=== PATIENT | male | born 1950 | race Caucasian/White ===

== ENCOUNTER → 2022-12-04 | Outpatient (CLI) | payer MEDICARE, OTHER ==
[~2022-12-04] MED LIST: ALFU10TA PO; AMYL1CAP58 PO; CLON1TAB12 PO; DULO60CA45 PO; ESOM40CA PO; FESO8TAB PO; GLIM1TAB18 PO; LORA10TA7 PO; PIOG15TA8 PO; SIMV10TA2 PO; SITA1TAB6 PO; SPIR25TA PO
[2022-12-04 14:23] LABS: BASOPHILS % (AUTO) 0.5 % (0.0-2.0); EOSINOPHILS % (AUTO) 3.9 % (0.0-6.0); HEMATOCRIT 38 % (39-51); HEMOGLOBIN 11.8 g/dL (13.5-17.5); LYMPHOCYTES # (AUTO) 1.1 K/uL (0.8-4.8); LYMPHOCYTES % (AUTO) 19.2 % (20.0-44.0); MEAN CORPUSCULAR HGB CONC 32 g/dl (31.0-36.0); MEAN CORPUSCULAR VOLUME 76 fL (80-96); MONOCYTES # (AUTO) 0.3 K/uL (0.1-1.30); MONOCYTES % (AUTO) 5.7 % (2.0-12.0); NEUTROPHILS # (AUTO) 4.1 K/uL (1.8-8.9); NEUTROPHILS % (AUTO) 70.7 % (43.0-81.0); PLATELET COUNT (AUTO) 119 K/uL (150-450); RED BLOOD CELL COUNT(AUTO) 4.95 MIL/uL (4.5-6.0); WHITE BLOOD COUNT (AUTO) 5.8 K/uL (4.3-11.0)
[2022-12-04 14:39] LABS: BILIRUBIN,URINE NEGATIVE (NEGATIVE); COLOR,URINE YELLOW (YELLOW); LEUKOCYTE ESTERASE ,URINE NEGATIVE (NEGATIVE); NITRITE, URINE NEGATIVE (NEGATIVE); PH,URINE 5.5 (5.0-8.0); PROTEIN,URINE NEGATIVE (NEGATIVE); UGLUCOSE 3+ mg/dL (NEGATIVE); UROBILINOGEN,URINE 0.2 EU/dL (0.2)
[2022-12-04 14:50] LABS: CALCIUM, SERUM 8.8 mg/dL (8.5-10.1); CARBON DIOXIDE 29 mmol/L (21-32); CHLORIDE 105 mmol/L (98-107); CREATININE 1.4 mg/dL (0.6-1.3); GLUCOSE 225 mg/dL (74-106); POTASSIUM 4.9 mmol/L (3.5-5.1); SODIUM SERUM 140 mmol/L (136-145); UREA NITROGEN, BLOOD 23 mg/dL (7-18)
[2022-12-04 16:21] LABS: BACTERIA,URINE None seen /HPF (None Seen); RBC,URINE 0-2 /HPF (0-2); SQUAMOUS EPITHELIAL CELL,UR 0-2 /HPF (None Seen); WBC,URINE 0-2 /HPF (0-3)
== END | disposition home or self-care (01) ==
LOC: RAD 13:15
PROVIDERS: ATTEND Internal Medicine Pulmonary Disease
DX: Z01.818 Encounter for other preprocedural examination (principal)
CPT/HCPCS: 36415; 71045-TC; 80048-TC; 81001; 85025-TC; 85730-TC

== ENCOUNTER 2022-12-14 13:11 | Outpatient (CLI) | payer MEDICARE, OTHER | END 2022-12-14 23:59 | disposition home or self-care (01) | LOC: LAB 13:11 | PROVIDERS: ATTEND Dentist Oral and Maxillofacial Surgery | DX: Z01.812 Encounter for preprocedural laboratory examination (principal); Z20.822 Contact with and (suspected) exposure to COVID-19 | CPT/HCPCS: U0003; C9803 ==

== ENCOUNTER 2023-07-09 08:35 | Inpatient (IN) | payer MEDICARE, OTHER ==
[~2023-07-09] VITALS: Ht 170.2 cm; Wt 66.2 kg
[~2023-07-09 08:35] MED LIST changes: +LIDOCAINE 2% JEL 5 ML TUBE MC ONE
[2023-07-09] MEDS ORDERED: LIDOCAINE 2%-EPI 1:100,000 30 ML VIAL ONE (09:27)
[2023-07-09] MEDS ORDERED: VANCOMYCIN 1 GM VIAL ONE (09:27)
[2023-07-09] MEDS ORDERED: dexaMETHasone SOD PHOSPHATE 10 MG/ML VIAL ONE (09:27)
[2023-07-09] MEDS ORDERED: OXYMETAZOLINE HCL NASAL SPRAY 30 ML BOTTLE NS ONE ×2 (09:27→09:52)
[2023-07-09] MEDS ORDERED: TEMA15CA PO (09:42)
[2023-07-09] MEDS ORDERED: LIPA1CAP15 PO (09:42)
[2023-07-09] MEDS ORDERED: INSU100V7 SQ (09:42)
[2023-07-09] MEDS ORDERED: PYRI100T10 PO (09:42)
[2023-07-09] MEDS ORDERED: VITA1TAB56 PO (09:42)
[2023-07-09] MEDS ORDERED: MAGN400T26 PO (09:42)
[2023-07-09] MEDS ORDERED: INSU100I4 SQ (09:42)
[2023-07-09] MEDS ORDERED: LATA2.5D15 EACHEYE (09:42)
[2023-07-09] MEDS ORDERED: CHOL100043 PO (09:42)
[2023-07-09] MEDS ORDERED: METF-867 PO (09:42)
[2023-07-09] MEDS ORDERED: MYRBETRIQ PO (09:42)
[2023-07-09] MEDS ORDERED: MELA5TAB PO (09:42)
[2023-07-09] MEDS ORDERED: THIA250T9 PO (09:42)
[2023-07-09] MEDS ORDERED: FAMOTIDINE/PF INJ 20 MG/2 ML VIAL IV ONE (09:51)
[2023-07-09] MEDS ORDERED: FENTANYL PF 100MCG/2ML AMPUL ONE (09:51)
[2023-07-09] MEDS ORDERED: ROCURONIUM BROMIDE 50 MG/5 ML ONE (09:51)
[2023-07-09 10:00] VITALS: BP 129/81; TEMP 98.6; O2SAT 96
[2023-07-09 12:13] VITALS: BP 128/83; TEMP 98.3; O2SAT 98
[2023-07-09] MEDS ORDERED: IV NS 0.9% 1,000 ML IV PRN (12:30)
[2023-07-09] MEDS ORDERED: ONDANSETRON HCL/PF 4 MG/2 ML VIAL IVP PRN (12:30)
[2023-07-09] MEDS ORDERED: ACETAMINOPHEN 325 MG TABLET PO PRN (12:30)
[2023-07-09] MEDS ORDERED: HYDROMORPHONE 1 MG/1 ML DISP.SYRIN IV PRN (12:30)
[2023-07-09 16:00] VITALS: BP 129/76; TEMP 98.6; O2SAT 98
[2023-07-09] MEDS ORDERED: DEXTROSE 50%-WATER 50 ML DISP.SYRIN IV PRN (16:00)
[2023-07-09] MEDS: BLOOD SUGAR DIAGNOSTIC 1 EACH STRIP IN SCH ×2 (17:13→22:09)
[2023-07-09] MEDS: INSULIN REGULAR, HUMAN 100 UNIT/ML 3 ML VIAL SQ PRN ×2 (17:17→22:11)
[2023-07-09 20:00] VITALS: BP 122/76; TEMP 98.6; O2SAT 96
[2023-07-09] MEDS: VANCOMYCIN 1 GM in IV D5W 250ml IV SCH (22:08)
[2023-07-10] MEDS: BLOOD SUGAR DIAGNOSTIC 1 EACH STRIP IN SCH ×2 (06:54→12:00)
[2023-07-10] MEDS: INSULIN REGULAR, HUMAN 100 UNIT/ML 3 ML VIAL SQ PRN (06:56)
[2023-07-10 08:00] VITALS: BP 130/86; TEMP 97.5; O2SAT 97
[2023-07-10] MEDS: VANCOMYCIN 1 GM in IV D5W 250ml IV SCH (10:37)
== END 2023-07-10 12:55 | disposition home or self-care (01) | DRG 497 ==
LOC: DS 08:35 → MED 09:13
PROVIDERS: ADMIT Internal Medicine; ATTEND Internal Medicine
PROC: 0NPW04Z Removal of Internal Fixation Device from Facial Bone, Open Approach (ICD-10-PCS; principal; 2023-07-09)
PROC: 0WB30ZX Excision of Oral Cavity and Throat, Open Approach, Diagnostic (ICD-10-PCS; 2023-07-09)
PROC: 0NBR0ZX Excision of Maxilla, Open Approach, Diagnostic (ICD-10-PCS; 2023-07-09)
DX: T84.69XA Infection and inflammatory reaction due to internal fixation device of other site, initial encounter (principal); E11.9 Type 2 diabetes mellitus without complications; E78.5 Hyperlipidemia, unspecified; I10 Essential (primary) hypertension; K12.30 Oral mucositis (ulcerative), unspecified; Z79.4 Long term (current) use of insulin; Y83.8 Other surgical procedures as the cause of abnormal reaction of the patient, or of later complication, without mention of misadventure at the time of the procedure; Y92.009 Unspecified place in unspecified non-institutional (private) residence as the place of occurrence of the external cause
CPT/HCPCS: 82962-TC; A4223; G0378; J1100; J1815; J2405; J2704; J3010; J3370; J3490; J7030; J7060

== ENCOUNTER 2024-05-12 08:46 | Inpatient (IN) | payer MEDICARE, OTHER ==
[~2024-05-12] VITALS: Ht 172.7 cm; Wt 78.0 kg
[~2024-05-12 08:46] MED LIST changes: -AMYL1CAP58 PO; +CHOL100043 PO; -CLON1TAB12 PO; -DULO60CA45 PO; -ESOM40CA PO; -FESO8TAB PO; -GLIM1TAB18 PO; +INSU100I4 SQ; +INSU100V7 SQ; +LATA2.5D15 EACHEYE; -LIDOCAINE 2% JEL 5 ML TUBE MC ONE; +LIPA1CAP15 PO; -LORA10TA7 PO; +MAGN400T26 PO; +MELA5TAB PO; +METF-867 PO; +MYRBETRIQ PO; -PIOG15TA8 PO; +PYRI100T10 PO; -SITA1TAB6 PO; -SPIR25TA PO; +TEMA15CA PO; +THIA250T9 PO; +VITA1TAB56 PO
[2024-05-12] MEDS ORDERED: dexaMETHasone SOD PHOSPHATE 1 ML ONE (09:34)
[2024-05-12] MEDS ORDERED: VANCOMYCIN 1 GM VIAL ONE (09:34)
[2024-05-12] MEDS ORDERED: LIDOCAINE 2%-EPI 1:100,000 30 ML VIAL ONE (09:34)
[2024-05-12] MEDS ORDERED: FENTANYL PF 250MCG/5ML AMPUL ONE (09:39)
[2024-05-12] MEDS ORDERED: OXYMETAZOLINE HCL NASAL SPRAY 30 ML BOTTLE NS ONE (09:39)
[2024-05-12 09:46] LABS: INR 1.03 (0.91-1.10); PARTIAL THROMBOPLASTIN TIME 27.1 SEC (24.3-34.3); PROTHROMBIN TIME 10.9 SECS (9.2-11.1)
--- NOTE | 2024-05-12 12:50 | NUR ---
RN NOTES RECEIVED 73YO MALE PATIENT FROM THE OR ACCOMPANIED BY OR NURSES AND PATIENT'S DAUGHTER AT 1245. VITAL SIGNS TAKEN AND RECORDED FOLLOWS: BP 115/68, P: 77, R: 16, T: 97.9, O2 SAT AT 96%. PATIENT ORIENTED TO STAFF AND THE ROOM. ENCOURAGED PATIENT TO USE CALL LIGHT WHEN NEEDED ASSISTANCE. KEPT PATIENT COMFORTABLE. WILL CONTINUE TO MONITOR. Addendum: 05/12/24 at 1601 by KELBY VARELA RN PATIENT ON 2L O2 VIA NC. TOLERATING WELL. DENIED ANY /SOB. DENIED ANY DISCOMFORT OR PAIN OF THIS TIME
[2024-05-12] MEDS ORDERED: ACETAMINOPHEN 325 MG TABLET PO PRN ×2 (13:00→16:00)
[2024-05-12] MEDS ORDERED: HYDROMORPHONE 1 MG/1 ML DISP.SYRIN IV PRN (13:00)
[2024-05-12] MEDS ORDERED: ONDANSETRON HCL/PF 4 MG/2 ML VIAL IV PRN (13:00)
--- NOTE | 2024-05-12 13:13 | NUR ---
RN NOTES PATIENT IN THE UNIT WITH DAUGHTER AT BEDSIDE. PER DR ARCINIEGA, OK TO GIVE ICE CHIPS. WILL CONTINUE TO MONITOR
[2024-05-12] MEDS ORDERED: FESO8TAB PO (14:08)
[2024-05-12] MEDS ORDERED: PANT40TA2 PO (14:08)
[2024-05-12] MEDS ORDERED: CYAN500T64 PO (14:08)
[2024-05-12] MEDS ORDERED: INSU100I4 SQ ×3 (14:08)
[2024-05-12] MEDS ORDERED: MAGN200T4 PO (14:08)
[2024-05-12] MEDS ORDERED: MILK175T2 PO (14:08)
[2024-05-12] MEDS ORDERED: METF-442 PO (14:08)
[2024-05-12] MEDS ORDERED: DULO30CA2 PO (14:08)
[2024-05-12] MEDS ORDERED: DAPA5TAB PO (14:08)
[2024-05-12] MEDS ORDERED: VITAMIN PO (14:08)
[2024-05-12 15:49] VITALS: BP 115/68; TEMP 97.9; O2SAT 95
[2024-05-12 16:00] VITALS: BP 131/83; TEMP 98.1; O2SAT 96
[2024-05-12] MEDS ORDERED: Z GUARD REMEDY 4 OZ OINT TP PRN (16:00)
[2024-05-12] MEDS ORDERED: MAGNESIUM HYDROXIDE 30 ML UDC PO PRN (16:00)
[2024-05-12] MEDS ORDERED: MAG HYDROX/AL HYDROX/SIMETH 30 ML UDC PO PRN (16:00)
[2024-05-12] MEDS ORDERED: INSULIN ASPART 6 UNIT SQ SCH (16:00)
[2024-05-12] MEDS ORDERED: ZOLPIDEM TARTRATE 5 MG TABLET PO PRN (16:00)
[2024-05-12] MEDS ORDERED: ONDANSETRON HCL/PF 4 MG/2 ML VIAL IVP PRN (16:00)
[2024-05-12] MEDS: SIMVASTATIN 10 MG TABLET PO SCH (17:03)
[2024-05-12] MEDS: IV NS 0.9% 1,000 ML IV PRN (17:03)
--- NOTE | 2024-05-12 17:16 | NUR ---
RN NOTES ACCUCHECK DONE. BLOOD SUGAR 228. INFORMED DR LOPEZ. AWAITING ORDERS, CHARGE NURSE LIANA AWARE TOO. WILL CONTINUE TO MONITOR
[2024-05-12] MEDS: BLOOD SUGAR DIAGNOSTIC 1 EACH STRIP VI SCH (17:17)
[2024-05-12] MEDS ORDERED: DEXTROSE 50%-WATER 50 ML DISP.SYRIN IV PRN (17:30)
[2024-05-12] MEDS ORDERED: *INSULIN REGULAR(HUMULIN R)HUM 100 UNIT/ML VIAL SQ PRN (17:30)
[2024-05-12] MEDS ORDERED: INSULIN ASPART 16 UNIT SQ SCH (18:00)
[2024-05-12] MEDS: INSULIN REGULAR, HUMAN 100 UNIT/ML 3 ML VIAL SQ PRN (18:41)
--- NOTE | 2024-05-12 18:51 | NUR ---
MS ANIMAL CARE SPECIALIST NOTES- RECEIVED A 73Y/O MALE PATIENT FROM THE OR VIA HOSPITAL BED ACCOMPANIED BY OR NURSES AT 1245. VS TAKEN AND RECORDED. ON 2L NC, TOLERATING WELL SATURATING AT 96%. BREATHING EVENLY AND UNLABORED, TOLERATING WELL. DENIES OR SOB OF THIS TIME. DENIES ANY DISCOMFORT OR PAIN OF THIS MOMENT. PATIENT IS ALERT ORIENTED X4. PATIENT HAS AN IV ACCESS ATR HAND G#20, PATENT, INTACT AND INFUSING WELL WITH NS AT 30ML/HR. NO S/SX OF INFILTRATION NOTED. NO BLEEDING NOTED. SKIN ASSESSMENT DONE, SKIN INTACT. ALL BELONGINGS INVENTORIED AND ACCOUNTED, SIGNED AND FILED AT THE PATIENT'S CHART. ORIENTED PATIENT TO ROOM SET-UP. ABLE TO EXPRESS HIS NEEDS. PATIENT EXPRESSES NO NEEDS OF THIS TIME. KEPT PATIENT CLEAN, DRY AND COMFORTABLE. ALL NEEDS MET. ALL DUE MEDS GIVEN. NO REPORTED BLEEDING FROM THE MOUTH. SAFETY MEASURES IN PLACE. CALL LIGHT AND TABLE WITHIN REACH. BED IN LOW AND LOCKED POSITION. SIDE RAILS UP X 2. ENDORSED TO DIGITAL CONTENT SPECIALIST NURSE FOR RADHA.
--- NOTE | 2024-05-12 19:05 | NUR ---
MS RN OPENING NOTES RECEIVED PATIENT AWAKE IN BED, WATCHING TV. A/O X 4. ON 2L OXYGEN VIA NASAL CANNULA, BREATHING EVEN AND UNLABORED, SATURATING @ 100%. REMOVED THE OXYGEN FOR NOW AND PUT THE PATIENT ON ROOM AIR. IV ACCESS RIGHT HAND #20G WITH IV FLUID RUNNING NS @ 30 ML/HR, INFUSING WELL. PATIENT ON SOFT DIET. SAFETY MEASURES IN PLACE WITH BED IN LOWEST LOCKED POSITION, SIDE RAILS UP X 2, CALL LIGHT AND TRAY WITHIN EASY REACH. PLAN OF CARE ONGOING.
[2024-05-12 20:00] VITALS: BP 115/80; TEMP 98.4; O2SAT 100
[2024-05-12] MEDS ORDERED: Medication Not On Formulary EA (Melatonin 5 MG) PO SCH (22:00)
[2024-05-12] MEDS ORDERED: ALFUZOSIN HCL 10 MG PO SCH (22:00)
[2024-05-12] MEDS: VANCOMYCIN 1 GM in IV D5W 250ml IV SCH (22:09)
[2024-05-12] MEDS: TEMAZEPAM 15 MG CAPSULE PO SCH (22:09)
[2024-05-12] MEDS: INSULIN GLARGINE, 100 UNIT/ML CARTRIDGE SQ SCH (22:21)
--- NOTE | 2024-05-12 22:30 | NUR ---
RN NOTES-ACCUCHECK DONE. BS LEVEL-239. LANTUS GIVEN 16 UNITS, PATIENT REFUSED REGULAR INSULIN DESPITE EXPLANATION AND EDUCATION ABOUT THE MEDICATION. PER PATIENT, HE IS ONLY TAKING LANTUS AT NIGHT. DENIES ANY ACUTE DISTRESS AT THIS TIME. PLAN OF CARE ONGOING.
[2024-05-13 06:29] LABS: BASOPHILS % (AUTO) 0.2 % (0.0-2.0); EOSINOPHILS % (AUTO) 0.1 % (0.0-6.0); HEMATOCRIT 42 % (39-51); HEMOGLOBIN 14.2 g/dL (13.5-17.5); LYMPHOCYTES # (AUTO) 0.9 K/uL (0.8-4.8); LYMPHOCYTES % (AUTO) 9.2 % (20.0-44.0); MEAN CORPUSCULAR HEMOGLOBIN 28 PG (26.0-33.0); MEAN CORPUSCULAR HGB CONC 34 g/dl (31.0-36.0); MEAN CORPUSCULAR VOLUME 84 fL (80-96); MONOCYTES # (AUTO) 0.4 K/uL (0.1-1.30); MONOCYTES % (AUTO) 3.8 % (2.0-12.0); NEUTROPHILS # (AUTO) 8.8 K/uL (1.8-8.9); NEUTROPHILS % (AUTO) 86.7 % (43.0-81.0); PLATELET COUNT (AUTO) 95 K/uL (150-450); RED BLOOD CELL COUNT(AUTO) 5.04 MIL/uL (4.5-6.0); RED CELL DISTRIBUTION WIDTH 15.6 % (11.5-15.0); WHITE BLOOD COUNT (AUTO) 10.1 K/uL (4.3-11.0)
--- NOTE | 2024-05-13 06:34 | NUR ---
RN NOTES- ACCUCHECK DONE. BS LEVEL 182- 3 UNITS REGULAR INSULIN GIVEN. DENIES ANY ACUTE DISTRESS AT THIS TIME. PLAN OF CARE ONGOING.
--- NOTE | 2024-05-13 06:35 | NUR ---
MS RN CLOSING NOTES PATIENT SLEEPING IN BED, EASILY AWAKEN BY VERBAL STIMULI. A/O X 4. STABLE ON ROOM AIR. IV ACCESS RIGHT HAND #20G WITH IV FLUID RUNNING NS @ 30 ML/HR, INFUSING WELL. PATIENT ON SOFT DIET. ALL NEEDS ATTENDED. SAFETY MEASURES MAINTAINED DURING SHIFT. WILL ENDORSE TO THE NEXT NURSE ON DUTY FOR CONTINUITY OF CARE.
[2024-05-13 07:02] LABS: CALCIUM, SERUM 8.8 mg/dL (8.5-10.1); CARBON DIOXIDE 25 mmol/L (21-32); CHLORIDE 104 mmol/L (98-107); CREATININE 1.1 mg/dL (0.6-1.3); GLUCOSE 191 mg/dL (74-106); MAGNESIUM 1.7 mg/dL (1.8-2.4); POTASSIUM 4.7 mmol/L (3.5-5.1); SODIUM SERUM 137 mmol/L (136-145); UREA NITROGEN, BLOOD 24 mg/dL (7-18)
--- NOTE | 2024-05-13 07:18 | NUR ---
MS RN OPENING NOTES- 307/ RECEIVED PATIENT AWAKE IN BED, A/O X 4. ON ROOM AIR, BREATHING EVEN AND UNLABORED, SATURATING @ 100%. IV ACCESS ON RIGHT HAND #20G WITH IV FLUID RUNNING NS @ 30 ML/HR, INFUSING WELL. NO S/SX OF INFILTRATION NOTED. NO BLEEDING NOTED. PATIENT ON SOFT DIET. ABLE TO MAKE NEEDS KNOWN. PATIENT EXPRESSES NO NEEDS OF THIS MOMENT. SAFETY MEASURES IN PLACE WITH BED IN LOWEST LOCKED POSITION, SIDE RAILS UP X 2, CALL LIGHT AND TRAY WITHIN EASY REACH. PLAN OF CARE ONGOING.
[2024-05-13 08:00] VITALS: BP 108/72; TEMP 97.7; O2SAT 96
[2024-05-13] MEDS: DULOXETINE HCL 30 MG CAPSULE.DR PO SCH (08:59)
[2024-05-13] MEDS: METFORMIN 500 MG TABLET PO SCH (09:00)
[2024-05-13] MEDS ORDERED: [UNRECOGNIZED DRUG - OTHER] PO SCH (09:00)
[2024-05-13] MEDS ORDERED: Medication Not On Formulary EA ([Myrbetriq] 50 MG) PO SCH (09:00)
[2024-05-13] MEDS ORDERED: INSULIN ASPART 22 UNIT SQ SCH (09:00)
[2024-05-13] MEDS: CYANOCOBALAMIN 500 MCG TABLET PO SCH (09:00)
[2024-05-13] MEDS ORDERED: Medication Not On Formulary EA (Fesoterodine Fumarate (Toviaz) 8 MG) PO SCH (09:00)
[2024-05-13] MEDS ORDERED: MILK THISTLE SEED EXTRACT 175 MG PO SCH (09:00)
[2024-05-13] MEDS: VITAMIN B COMP W-C 1 TAB TABLET PO SCH (09:01)
[2024-05-13] MEDS: MAGNESIUM OXIDE 400 MG TABLET PO SCH (09:01)
[2024-05-13] MEDS: PANTOPRAZOLE 40 MG TABLET.DR PO SCH (09:01)
[2024-05-13] MEDS: CHOLECALCIFEROL 1,000 UNIT TABLET (VIT D3) PO SCH (09:01)
[2024-05-13] MEDS: THIAMINE HCL 100 MG TABLET PO SCH (09:03)
[2024-05-13] MEDS: PYRIDOXINE HCL 50 MG TABLET PO SCH (09:03)
--- NOTE | 2024-05-13 09:56 | NUR ---
RN NOTES DAPAGLIFLOZIN NOT ON CASSETTE. INFORMED PHARMACY. SAID THEY WILL SENT IT IN. WAITING FOR THE MEDICATION.
--- NOTE | 2024-05-13 10:16 | NUR ---
RN NOTE DAPAGLIFLOZIN RECEIVED. WILL NOW GIVE TO PATIENT. WILL CONTINUE TO MONITOR.
[2024-05-13] MEDS: DAPAGLIFLOZIN PROPANEDIOL 5 MG TABLET PO SCH (10:18)
[2024-05-13 10:23] LABS: BASOPHILS % (MANUAL) 0 % (0.0-2.0); EOSINOPHILS % (MANUAL) 0 % (0-4); LYMPHOCYTES % (MANUAL) 11 % (16-48); MONOCYTES % (MANUAL) 4 % (0-11.0); NEUTROPHILS % (MANUAL) 85 (42-76)
[2024-05-13 10:24] LABS: ANISOCYTOSIS 1+; PLATELET ESTIMATE DECREASED
[2024-05-13] MEDS: LIPASE/PROTEASE/AMYLASE 1 EACH CAPSULE.DR PO SCH (12:16)
--- NOTE | 2024-05-13 14:17 | NUR ---
MS RN HYPERBARIC NOTES PATIENT DISCHARGED TO HOME AMBULATORY ACCOMPANIED BY HIS DAUGHTER, AND TAKER OFF HEMP FIBER KELBY. A/O X 4. TOLERATING ROOM AIR WELL, BREATHING EVENLY AND UNLABORED, NO ACUTE RESPIRATORY DISTRESS NOTED. DENIED ANY PAIN OR DISCOMFORT OF THIS TIME. NO ORAL BLEEDING NOTED AND REPORTED. ALL VITAL SIGNS, WNL. ALL BELONGINGS ARE ACCOUNTED FOR BY LETICIA MAURICE, SIGNED AND FILED ON PATIENT'S CHART. HEALTH TEACHINGS AND DISCHARGE INSTRUCTIONS WERE GIVEN TO THE PATIENT. HE VERBALIZED UNDERSTANDING. ALL DUE MEDS WERE GIVEN. ALL NEEDS MET. NAME ARMBAND AND IV ACCESS REMOVED. PATIENT LEFT UNIT @ 1345. CHARGE NURSE AND DOCTOR AWARE.
== END 2024-05-13 13:45 | disposition home or self-care (01) | DRG 142 ==
LOC: DS 08:46 → MED 12:59
PROVIDERS: ADMIT Student in an Organized Health Care Education/Training Program; ATTEND Student in an Organized Health Care Education/Training Program
PROC: 0NSV04Z Reposition Left Mandible with Internal Fixation Device, Open Approach (ICD-10-PCS; principal; 2024-05-12)
PROC: 0NSR04Z Reposition Maxilla with Internal Fixation Device, Open Approach (ICD-10-PCS; 2024-05-12)
PROC: 0NUR07Z Supplement Maxilla with Autologous Tissue Substitute, Open Approach (ICD-10-PCS; 2024-05-12)
PROC: 0NBR0ZZ Excision of Maxilla, Open Approach (ICD-10-PCS; 2024-05-12)
PROC: 0NUV07Z Supplement Left Mandible with Autologous Tissue Substitute, Open Approach (ICD-10-PCS; 2024-05-12)
PROC: 0NBV0ZX Excision of Left Mandible, Open Approach, Diagnostic (ICD-10-PCS; 2024-05-12)
PROC: 0NUV0JZ Supplement Left Mandible with Synthetic Substitute, Open Approach (ICD-10-PCS; 2024-05-12)
PROC: 0NUR0JZ Supplement Maxilla with Synthetic Substitute, Open Approach (ICD-10-PCS; 2024-05-12)
DX: S02.69XA Fracture of mandible of other specified site, initial encounter for closed fracture (principal); M27.2 Inflammatory conditions of jaws; S02.40DA Maxillary fracture, left side, initial encounter for closed fracture; J32.0 Chronic maxillary sinusitis; E78.5 Hyperlipidemia, unspecified; I10 Essential (primary) hypertension; E11.9 Type 2 diabetes mellitus without complications; M27.49 Other cysts of jaw; Z79.4 Long term (current) use of insulin; X58.XXXA Exposure to other specified factors, initial encounter; Y93.9 Activity, unspecified; Y92.009 Unspecified place in unspecified non-institutional (private) residence as the place of occurrence of the external cause; M84.88 Other disorders of continuity of bone, other site
CPT/HCPCS: 36415; 80048-TC; 82962-TC; 83735-TC; 84100-TC; 85025-TC; 85730-TC; 88305-TC; 88311-TC; A4223; A4338; C1713; C1781; G0378; J0330; J1100; J1170; J1815; J1885; J2405; J2704; J3010; J3370; J3490; J7030; J7050; J7060

== ENCOUNTER 2024-09-21 06:47 | Inpatient (IN) | payer MEDICARE, OTHER ==
[~2024-09-21] VITALS: Ht 172.7 cm; Wt 78.0 kg
[~2024-09-21 06:47] MED LIST changes: +CYAN500T64 PO; +DAPA5TAB PO; +DULO30CA2 PO; +FESO8TAB PO; -LATA2.5D15 EACHEYE; +MAGN200T4 PO; -MAGN400T26 PO; +METF-442 PO; -METF-867 PO; +MILK175T2 PO; +PANT40TA2 PO; +VITAMIN PO
[2024-09-21] MEDS ORDERED: LIDOCAINE 2%-EPI 1:100,000 30 ML VIAL ONE (06:49)
[2024-09-21] MEDS ORDERED: dexaMETHasone SOD PHOSPHATE 2 ML ONE (06:49)
[2024-09-21] MEDS ORDERED: ANESTHESIA TRAY IN PYXIS 1 EA TRAY MC ONE (06:49)
[2024-09-21] MEDS ORDERED: VANCOMYCIN 1 GM VIAL ONE (06:50)
[2024-09-21] MEDS ORDERED: OXYMETAZOLINE HCL NASAL SPRAY 30 ML BOTTLE NS ONE (06:50)
[2024-09-21] MEDS ORDERED: FENTANYL PF 250MCG/5ML AMPUL ONE (07:24)
[2024-09-21] MEDS ORDERED: ROCURONIUM BROMIDE 50 MG/5 ML ONE (07:24)
[2024-09-21 07:32] LABS: CREATININE 1.3 mg/dL (0.6-1.3); POTASSIUM 4.3 mmol/L (3.5-5.1)
[2024-09-21 07:39] LABS: ALBUMIN 3.4 g/dL (3.4-5.0); BILIRUBIN,TOTAL 0.8 mg/dL (0.2-1.0); TOTAL PROTEIN, SERUM 6.6 g/dL (6.4-8.2)
[2024-09-21] MEDS ORDERED: LABETALOL 20 MG/4 ML VIAL ONE (07:58)
[2024-09-21 10:30] VITALS: BP 123/83; TEMP 98.6; O2SAT 94
[2024-09-21] MEDS ORDERED: HYDROMORPHONE 1 MG/1 ML DISP.SYRIN IV PRN (10:30)
[2024-09-21] MEDS ORDERED: ACETAMINOPHEN 325 MG TABLET PO PRN ×2 (10:30→19:00)
[2024-09-21] MEDS ORDERED: ONDANSETRON HCL/PF 4 MG/2 ML VIAL IV PRN (10:30)
[2024-09-21] MEDS: IV NS 0.9% 1,000 ML IV PRN (11:38)
[2024-09-21] MEDS ORDERED: LATA2.5D15 EACHEYE (13:19)
[2024-09-21] MEDS ORDERED: DEXTROSE 50%-WATER 50 ML DISP.SYRIN IV PRN (15:30)
[2024-09-21 16:00] VITALS: BP 118/84; TEMP 97.3; O2SAT 94
[2024-09-21] MEDS: INSULIN REGULAR, HUMAN 100 UNIT/ML 3 ML VIAL SQ PRN (16:52)
[2024-09-21] MEDS: BLOOD SUGAR DIAGNOSTIC 1 EACH STRIP IN SCH (16:54)
[2024-09-21] MEDS ORDERED: TEMAZEPAM 15 MG CAPSULE PO PRN (19:00)
[2024-09-21] MEDS ORDERED: MAG HYDROX/AL HYDROX/SIMETH 30 ML UDC PO PRN (19:00)
[2024-09-21] MEDS ORDERED: Z GUARD REMEDY 4 OZ OINT TP PRN (19:00)
[2024-09-21] MEDS ORDERED: MAGNESIUM HYDROXIDE 30 ML UDC PO PRN (19:00)
[2024-09-21] MEDS ORDERED: ONDANSETRON HCL/PF 4 MG/2 ML VIAL IVP PRN (19:00)
[2024-09-21] MEDS: VANCOMYCIN 1 GM in IV D5W 250ml IV SCH (19:22)
[2024-09-21 20:00] VITALS: BP 126/80; TEMP 97.9; O2SAT 93
[2024-09-22 07:06] LABS: CALCIUM, SERUM 9.4 mg/dL (8.5-10.1); CREATININE 1.2 mg/dL (0.6-1.3); PHOSPHORUS 2.9 mg/dL (2.5-4.9)
[2024-09-22] MEDS: PANTOPRAZOLE 40 MG TABLET.DR PO SCH (07:29)
[2024-09-22 08:00] VITALS: BP 133/85; TEMP 97.9; O2SAT 95
[2024-09-22] MEDS ORDERED: INSULIN LISPRO/ASPART 100 UNIT/ML CARTRIDGE SQ SCH ×3 (08:30)
[2024-09-22] MEDS ORDERED: HOME MED MISCELLANEOUS XX SCH ×2 (08:30)
[2024-09-22] MEDS ORDERED: MAGNESIUM OXIDE 400 MG TABLET PO SCH (09:00)
[2024-09-22] MEDS ORDERED: PANTOPRAZOLE 40 MG TABLET.DR PO SCH (09:00)
[2024-09-22] MEDS: PYRIDOXINE HCL 50 MG TABLET PO SCH (09:18)
[2024-09-22] MEDS: THIAMINE HCL 100 MG TABLET PO SCH (09:18)
[2024-09-22] MEDS: DULOXETINE HCL 30 MG CAPSULE.DR PO SCH (09:18)
[2024-09-22] MEDS: CYANOCOBALAMIN 500 MCG TABLET PO SCH (09:19)
[2024-09-22] MEDS: METFORMIN 500 MG TABLET PO SCH (09:20)
[2024-09-22] MEDS: CHOLECALCIFEROL 1,000 UNIT TABLET (VIT D3) PO SCH (09:20)
[2024-09-22] MEDS: VITAMIN B COMP W-C 1 TAB TABLET PO SCH (09:20)
[2024-09-22] MEDS: DAPAGLIFLOZIN PROPANEDIOL 5 MG TABLET PO SCH (09:21)
[2024-09-22 10:13] LABS: BASOPHILS % (AUTO) 0.5 % (0.0-2.0); EOSINOPHILS % (AUTO) 0.1 % (0.0-6.0); HEMATOCRIT 44 % (39-51); HEMOGLOBIN 14.6 g/dL (13.5-17.5); LYMPHOCYTES # (AUTO) 0.8 K/uL (0.8-4.8); MEAN CORPUSCULAR HEMOGLOBIN 28 PG (26.0-33.0); MEAN CORPUSCULAR HGB CONC 34 g/dl (31.0-36.0); MEAN CORPUSCULAR VOLUME 84 fL (80-96); MONOCYTES # (AUTO) 0.3 K/uL (0.1-1.30); MONOCYTES % (AUTO) 3.5 % (2.0-12.0); NEUTROPHILS # (AUTO) 8.5 K/uL (1.8-8.9); NEUTROPHILS % (AUTO) 87.9 % (43.0-81.0); PLATELET COUNT (AUTO) 94 K/uL (150-450); RED BLOOD CELL COUNT(AUTO) 5.16 MIL/uL (4.5-6.0); RED CELL DISTRIBUTION WIDTH 14.7 % (11.5-15.0); WHITE BLOOD COUNT (AUTO) 9.7 K/uL (4.3-11.0)
[2024-09-22 13:03] LABS: LYMPHOCYTES % (MANUAL) 10 % (16-48); MONOCYTES % (MANUAL) 3 % (0-11.0); NEUTROPHILS % (MANUAL) 87 (42-76); OVALOCYTES 1+; PLATELET ESTIMATE DECREASED
[2024-09-22] MEDS ORDERED: SIMVASTATIN 10 MG TABLET PO SCH (18:00)
[2024-09-22] MEDS ORDERED: TEMAZEPAM 15 MG CAPSULE PO SCH (22:00)
[2024-09-22] MEDS ORDERED: LATANOPROST EYE DROP 0.005% 2.5 ML BOTTLE OP SCH (22:00)
[2024-09-22] MEDS ORDERED: LATANOPROST EYE DROP 0.005% 2.5 ML BOTTLE EACHEYE SCH (22:00)
[2024-09-22] MEDS ORDERED: INSULIN GLARGINE, 100 UNIT/ML CARTRIDGE SQ SCH (22:00)
== END 2024-09-22 11:00 | disposition home or self-care (01) | DRG 908 ==
LOC: DS 06:47 → MED 10:32
PROVIDERS: ADMIT Nurse Practitioner Acute Care; ATTEND Nurse Practitioner Acute Care
PROC: 0WC50ZZ Extirpation of Matter from Lower Jaw, Open Approach (ICD-10-PCS; principal; 2024-09-21)
PROC: 0N5R0ZZ Destruction of Maxilla, Open Approach (ICD-10-PCS; 2024-09-21)
PROC: 0NPW04Z Removal of Internal Fixation Device from Facial Bone, Open Approach (ICD-10-PCS; 2024-09-21)
PROC: 0WC40ZZ Extirpation of Matter from Upper Jaw, Open Approach (ICD-10-PCS; 2024-09-21)
PROC: 0N5V0ZZ Destruction of Left Mandible, Open Approach (ICD-10-PCS; 2024-09-21)
PROC: 0NSV04Z Reposition Left Mandible with Internal Fixation Device, Open Approach (ICD-10-PCS; 2024-09-21)
PROC: 0NSR04Z Reposition Maxilla with Internal Fixation Device, Open Approach (ICD-10-PCS; 2024-09-21)
PROC: 0NUV07Z Supplement Left Mandible with Autologous Tissue Substitute, Open Approach (ICD-10-PCS; 2024-09-21)
PROC: 0NUR07Z Supplement Maxilla with Autologous Tissue Substitute, Open Approach (ICD-10-PCS; 2024-09-21)
DX: T86.831 Bone graft failure (principal); S02.40DK Maxillary fracture, left side, subsequent encounter for fracture with nonunion; T84.69XA Infection and inflammatory reaction due to internal fixation device of other site, initial encounter; S02.69XK Fracture of mandible of other specified site, subsequent encounter for fracture with nonunion; E11.9 Type 2 diabetes mellitus without complications; K21.9 Gastro-esophageal reflux disease without esophagitis; N40.0 Benign prostatic hyperplasia without lower urinary tract symptoms; E78.5 Hyperlipidemia, unspecified; F32.A Depression, unspecified; H40.9 Unspecified glaucoma; I10 Essential (primary) hypertension; Y83.2 Surgical operation with anastomosis, bypass or graft as the cause of abnormal reaction of the patient, or of later complication, without mention of misadventure at the time of the procedure; D16.4 Benign neoplasm of bones of skull and face; K86.81 Exocrine pancreatic insufficiency; Z79.84 Long term (current) use of oral hypoglycemic drugs; X58.XXXD Exposure to other specified factors, subsequent encounter; Y72.8 Miscellaneous otorhinolaryngological devices associated with adverse incidents, not elsewhere classified; Y92.009 Unspecified place in unspecified non-institutional (private) residence as the place of occurrence of the external cause; Y83.8 Other surgical procedures as the cause of abnormal reaction of the patient, or of later complication, without mention of misadventure at the time of the procedure; J32.8 Other chronic sinusitis; T18.0XXA Foreign body in mouth, initial encounter
CPT/HCPCS: 36415; 80048-TC; 80053-TC; 82962-TC; 83735-TC; 84100-TC; 85025-TC; A4223; A4338; C1713; G0378; J0690; J1100; J1171; J1815; J2704; J3010; J3370; J3490; J7030; J7060

== ENCOUNTER 2025-01-12 08:25 | Inpatient (IN) | payer MEDICARE, OTHER ==
[~2025-01-12] VITALS: Ht 172.7 cm; Wt 82.6 kg
[~2025-01-12 08:25] MED LIST changes: -FESO8TAB PO; +LATA2.5D15 EACHEYE; -VITAMIN PO
[2025-01-12] MEDS ORDERED: dexaMETHasone SOD PHOSPHATE 1 ML ONE (09:38)
[2025-01-12] MEDS ORDERED: VANCOMYCIN 1 GM VIAL ONE (09:38)
[2025-01-12] MEDS ORDERED: OXYMETAZOLINE HCL NASAL SPRAY 30 ML BOTTLE NS ONE (09:38)
[2025-01-12] MEDS ORDERED: LIDOCAINE 2%-EPI 1:100,000 30 ML VIAL ONE (09:38)
[2025-01-12 10:15] LABS: INR 0.99 (0.91-1.10); PARTIAL THROMBOPLASTIN TIME 29.5 SEC (24.3-34.3); PROTHROMBIN TIME 10.5 SECS (9.2-11.1)
[2025-01-12 12:30] VITALS: BP 126/86; TEMP 97.7; O2SAT 95
[2025-01-12 12:45] VITALS: BP 130/85; TEMP 97.7; O2SAT 95
[2025-01-12 13:00] VITALS: BP 128/79; TEMP 97.7; O2SAT 96
[2025-01-12 13:15] VITALS: BP 128/82; TEMP 97.8; O2SAT 96
[2025-01-12 13:30] VITALS: BP 130/86; TEMP 98; O2SAT 96
[2025-01-12] MEDS ORDERED: HYDROMORPHONE 1 MG/1 ML DISP.SYRIN IV PRN (13:30)
[2025-01-12] MEDS ORDERED: ONDANSETRON HCL/PF - ER 4 MG/2 ML VIAL IVP PRN (13:30)
[2025-01-12] MEDS ORDERED: ONDANSETRON HCL/PF 4 MG/2 ML VIAL IVP PRN (13:30)
[2025-01-12] MEDS ORDERED: ACETAMINOPHEN 325 MG TABLET PO PRN (13:30)
[2025-01-12] MEDS ORDERED: FOLATE PO (13:42)
[2025-01-12] MEDS: IV NS 0.9% 1,000 ML IV PRN (14:53)
[2025-01-12] MEDS ORDERED: DEXTROSE 50%-WATER 50 ML DISP.SYRIN IV PRN (15:30)
[2025-01-12 16:00] VITALS: BP 130/88; TEMP 98.4; O2SAT 96
[2025-01-12] MEDS: INSULIN REGULAR, HUMAN 100 UNIT/ML 3 ML VIAL SQ PRN (17:12)
[2025-01-12] MEDS: BLOOD SUGAR DIAGNOSTIC 1 EACH STRIP IN SCH (17:13)
[2025-01-12] MEDS: SIMVASTATIN 10 MG TABLET PO SCH (17:33)
[2025-01-12] MEDS ORDERED: Medication Not On Formulary EA (Lipase/Protease/Amylase (Creon Dr 36,000 Units Capsule) PO SCH (18:00)
[2025-01-12] MEDS: VANCOMYCIN 1 GM in IV D5W 250ml IV SCH (21:06)
[2025-01-12] MEDS: INSULIN GLARGINE, 100 UNIT/ML CARTRIDGE SQ SCH (21:31)
[2025-01-12] MEDS: TEMAZEPAM 15 MG CAPSULE PO SCH (21:33)
[2025-01-13 06:36] LABS: BASOPHILS % (AUTO) 0.3 % (0.0-2.0); HEMATOCRIT 45 % (39-51); HEMOGLOBIN 15.4 g/dL (13.5-17.5); LYMPHOCYTES # (AUTO) 0.9 K/uL (0.8-4.8); LYMPHOCYTES % (AUTO) 8.9 % (20.0-44.0); MEAN CORPUSCULAR HEMOGLOBIN 28 PG (26.0-33.0); MEAN CORPUSCULAR HGB CONC 34 g/dl (31.0-36.0); MEAN CORPUSCULAR VOLUME 84 fL (80-96); MONOCYTES # (AUTO) 0.4 K/uL (0.1-1.30); MONOCYTES % (AUTO) 4.1 % (2.0-12.0); NEUTROPHILS # (AUTO) 9.2 K/uL (1.8-8.9); NEUTROPHILS % (AUTO) 86.7 % (43.0-81.0); PLATELET COUNT (AUTO) 109 K/uL (150-450); RED BLOOD CELL COUNT(AUTO) 5.42 MIL/uL (4.5-6.0); RED CELL DISTRIBUTION WIDTH 14.5 % (11.5-15.0); WHITE BLOOD COUNT (AUTO) 10.6 K/uL (4.3-11.0)
[2025-01-13 07:36] LABS: CALCIUM, SERUM 8.6 mg/dL (8.5-10.1); CREATININE 1.2 mg/dL (0.6-1.3); MAGNESIUM 2.1 mg/dL (1.8-2.4); PHOSPHORUS 2.6 mg/dL (2.5-4.9); POTASSIUM 4.1 mmol/L (3.5-5.1)
[2025-01-13] MEDS: DAPAGLIFLOZIN PROPANEDIOL 5 MG TABLET PO SCH (08:06)
[2025-01-13] MEDS: CYANOCOBALAMIN 500 MCG TABLET PO SCH (08:06)
[2025-01-13] MEDS: DULOXETINE HCL 30 MG CAPSULE.DR PO SCH (08:06)
[2025-01-13] MEDS: PANTOPRAZOLE 40 MG TABLET.DR PO SCH (08:06)
[2025-01-13 08:55] VITALS: BP 125/74; TEMP 98.2; O2SAT 95
== END 2025-01-13 13:10 | disposition home or self-care (01) | DRG 497 ==
LOC: DS 08:25 → MED 12:22
PROVIDERS: ADMIT Nurse Practitioner Family; ATTEND Nurse Practitioner Family
PROC: 0N5R0ZZ Destruction of Maxilla, Open Approach (ICD-10-PCS; 2025-01-12)
PROC: 0N5T0ZZ Destruction of Right Mandible, Open Approach (ICD-10-PCS; 2025-01-12)
PROC: 0N5V0ZZ Destruction of Left Mandible, Open Approach (ICD-10-PCS; 2025-01-12)
PROC: 0NPW04Z Removal of Internal Fixation Device from Facial Bone, Open Approach (ICD-10-PCS; principal; 2025-01-12 10:15)
DX: T84.69XA Infection and inflammatory reaction due to internal fixation device of other site, initial encounter (principal); M89.38 Hypertrophy of bone, other site; E11.9 Type 2 diabetes mellitus without complications; E78.5 Hyperlipidemia, unspecified; I10 Essential (primary) hypertension; Z79.4 Long term (current) use of insulin; K12.39 Other oral mucositis (ulcerative); Y83.8 Other surgical procedures as the cause of abnormal reaction of the patient, or of later complication, without mention of misadventure at the time of the procedure; Y92.009 Unspecified place in unspecified non-institutional (private) residence as the place of occurrence of the external cause
CPT/HCPCS: 36415; 80048-TC; 82962-TC; 83735-TC; 84100-TC; 85025-TC; 85610-TC; 85730-TC; 87081-TC; A4223; G0378; J0690; J1100; J1815; J2405; J2704; J3370; J3490; J7030; J7060